=== PATIENT | male | born 1940 | race Caucasian/White ===

== ENCOUNTER → 2021-07-08 10:40 | Outpatient (BNVA) | payer MEDICARE, BC, SELFPAY | PROVIDERS: Visit Provider Nurse Practitioner Gerontology | DX: N20.0 Calculus of kidney; N39.0 Urinary tract infection, site not specified; Q53.10 Unspecified undescended testicle, unilateral; N40.0 Benign prostatic hyperplasia without lower urinary tract symptoms | CPT/HCPCS: 81003; 99205 ==

== ENCOUNTER 2021-07-08 14:10 | Outpatient (REF) | payer MEDICARE, BC, SELFPAY ==
[2021-07-08 18:11] LABS: Bilirubin Negative (Negative); Blood Small (Negative); Clarity Clear (Clear); Glucose Negative (Negative); Ketones Negative (Negative); Leukocyte Esterase Small (Negative); Nitrite Negative (Negative); Specific Gravity 1.025 (1.005-1.025); Urobilinogen 0.2 EU/dL (Up TO 0.2)
[2021-07-08 18:24] LABS: Bacteria Negative HPF (Negative); C & S Indicated? C&S Done As Ordered; Crystals Few Calcium Oxalate HPF (Negative); Epithelial Cells Negative HPF (Negative); Mucus Trace (Negative); WBC >50 HPF (0-5)
== END 2021-07-08 14:11 | disposition home or self-care (01) ==
LOC: LBN 14:10
PROVIDERS: Visit Provider Nurse Practitioner Gerontology
DX: N20.0 Calculus of kidney (principal); N39.0 Urinary tract infection, site not specified
CPT/HCPCS: 81003; 81015; 87086

== ENCOUNTER 2021-07-22 03:19 | Outpatient (CLI) | payer MEDICARE, BC, SELFPAY ==
--- NOTE | 2021-07-22 07:45 | DI.CT_ITS ---
Exam(s) CT ABDOMEN PELVIS WO/W EXAM: CT ABDOMEN PELVIS WO/W CLINICAL HISTORY: hematuria,R31.9. TECHNIQUE: Imaging Protocol: Axial computed tomography images with coronal and sagittal reformatted images were created and reviewed CONTRAST MATERIAL: Intravenous: Omnipaque 100cc Oral: None COMPARISON: No exams were available for comparison FINDINGS: VISUALIZED LUNG BASES: Calcified pleural plaque noted in both lung bases. No pleural effusions.. ABDOMEN: There is no ascites. LIVER: There are no focal hepatic lesions evident. No dilated intrahepatic ducts. GALLBLADDER/BILIARY: Gallbladder is surgically absent. CBD is not dilated. PANCREAS: No evidence of pancreatic mass nor dilatation of the pancreatic duct. SPLEEN: Spleen is not enlarged. No obvious intrasplenic lesions. Splenic and portal veins are paten t. ADRENALS: There are nodules in both adrenal glands. In the right adrenal gland there is a 1.7 by 1.2 cm hypodense nodule. In the left adrenal gland at the level the genu there is a 1.6 by 1.2 cm nodul e. KIDNEYS:There is cysts in both kidneys. The largest cyst in the right kidney measures 2.7 x 2.7 cm. The largest cyst in the left kidney measures 2.6 x 2.7 cm. No solid renal masses seen in either kid sd . However, there are no calculi evident in both kidneys of varying sizes, ranging up to approxim ately 8 millimeter size. No hydronephrosis. No hydroureter. No calculi at the uterovesical junctio ns nor within the urinary bladder. 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 LYMPH NODES:There is no retroperitoneal nor paraaortic adenopathy. ABDOMINAL WALL: There is a fat containing umbilical hernia. No bowel loops therein. There is also a fat containing left inguinal hernia. No bowel loops therein. GI: There is no evidence of bowel obstruction, free air, nor abscess. PELVIS: GI: No evidence of appendicitis.There is sigmoid diverticulosis. There is also evidence of acute div erticulitis in the sigmoid with a small mural abscess measuring 1.4 by 0.7 cm, best seen on the coron al reconstructed images. LYMPH NODES: There is no intrapelvic nor inguinal adenopathy. REPRODUCTIVE: Prostate gland is not enlarged. URINARY BLADDER: No calculi nor obvious masses evident OSSEOUS: No significant osseous lesions. No acute fractures. IMPRESSION: 1. Cysts colonic and sigmoid diverticulosis. There is also evidence of acute diverticulitis in the s igmoid and there is a small 14 x 7 millimeter mural abscess. This is best seen on the coronal recons tructed images. There is no evidence of appendicitis. 2. Multiple simple benign cysts in both kidneys as well as multiple nonobstructive calculi in both ki dneys. No solid renal masses. 3. Bilateral adrenal nodules, possibly incidental adenomas. 4. Abdominal aortic aneurysm with maximum diameter of 3.9 cm. This is superimposed upon atherosclero tic abdominal aorta and iliac arteries. 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 5. The gallbladder surgically absent. The biliary tree is not dilated. RADIATION DOSE DELIVERED: 3,380.2mGy.cm Total DLP DATA REPOSITORY: All CT scans at this facility are submitted to the National Radiology Data Registry (NRDR) Dose Index Registry (DIR) with the [employer] ([employer]). RADIATION OPTIMIZATION: All CT scans at this facility use at least one of these dose optimization te chniques: automated exposure control; mA and/or kV adjustment per patient size (includes targeted exa ms where dose is matched to clinical indication); or iterative reconstruction.
[2021-07-22] MEDS: Breeza Beverage 473 ML BTL PO (09:54)
[2021-07-22 10:41] LABS: CREATININE 0.9 mg/dL (0.70-1.30)
== END 2021-07-22 03:39 ==
PROVIDERS: Visit Provider Nurse Practitioner Gerontology
DX: R31.9 Hematuria, unspecified (principal); N28.1 Cyst of kidney, acquired; I71.4 Abdominal aortic aneurysm, without rupture; I72.3 Aneurysm of iliac artery; K42.9 Umbilical hernia without obstruction or gangrene; K57.20 Diverticulitis of large intestine with perforation and abscess without bleeding; N20.0 Calculus of kidney; D35.01 Benign neoplasm of right adrenal gland; D35.02 Benign neoplasm of left adrenal gland; Z01.812 Encounter for preprocedural laboratory examination
CPT/HCPCS: 74178; 82565

== ENCOUNTER → 2021-08-05 12:31 | Outpatient (BNVA) | payer MEDICARE, BC, SELFPAY | PROVIDERS: PCP Physician Assistant; Visit Provider Nurse Practitioner Gerontology | DX: N20.0 Calculus of kidney (principal); R31.29 Other microscopic hematuria; N40.1 Benign prostatic hyperplasia with lower urinary tract symptoms; N13.8 Other obstructive and reflux uropathy | CPT/HCPCS: 99214 ==

== ENCOUNTER 2021-09-15 09:09 | Outpatient (REF) | payer MEDICARE, BC, SELFPAY | END 2021-09-15 09:10 | disposition home or self-care (01) | LOC: LBN 09:09 | PROVIDERS: PCP Nurse Practitioner; Visit Provider Nurse Practitioner Gerontology | DX: R30.0 Dysuria (principal) | CPT/HCPCS: 87077; 87086; 87186 ==

== ENCOUNTER → 2021-09-15 12:57 | Outpatient (BNVA) | payer MEDICARE, BC, OTHER, SELFPAY | PROVIDERS: PCP Nurse Practitioner; Referring Provider Nurse Practitioner; Visit Provider Nurse Practitioner Gerontology | DX: N40.1 Benign prostatic hyperplasia with lower urinary tract symptoms (principal); N13.8 Other obstructive and reflux uropathy; R31.29 Other microscopic hematuria; N39.0 Urinary tract infection, site not specified | CPT/HCPCS: 81003; 99214 ==

== ENCOUNTER → 2021-09-23 12:47 | Outpatient (BNVA) | payer MEDICARE, BC, SELFPAY | PROVIDERS: PCP Nurse Practitioner; Referring Provider Physician Assistant; Visit Provider Urology | DX: R31.29 Other microscopic hematuria (principal) | CPT/HCPCS: 52000; 81003 ==

== ENCOUNTER 2021-10-16 11:22 | Outpatient (REF) | payer MEDICARE, BC, SELFPAY | END 2021-10-16 11:23 | disposition home or self-care (01) | LOC: LBN 11:22 | PROVIDERS: PCP Nurse Practitioner; Visit Provider Nurse Practitioner Gerontology | DX: R39.89 Other symptoms and signs involving the genitourinary system (principal) | CPT/HCPCS: 87077; 87086; 87186 ==

== ENCOUNTER → 2021-10-16 15:14 | Outpatient (BNVA) | payer MEDICARE, BC, SELFPAY | PROVIDERS: PCP Nurse Practitioner; Referring Provider Nurse Practitioner; Visit Provider Nurse Practitioner Gerontology | DX: N40.1 Benign prostatic hyperplasia with lower urinary tract symptoms (principal); N13.8 Other obstructive and reflux uropathy; N39.0 Urinary tract infection, site not specified | CPT/HCPCS: 51798; 81003; 99213 ==

== ENCOUNTER → 2021-11-25 09:19 | Outpatient (BNVA) | payer MEDICARE, BC, SELFPAY | PROVIDERS: PCP Nurse Practitioner; Referring Provider Nurse Practitioner; Visit Provider Nurse Practitioner Gerontology | DX: N40.1 Benign prostatic hyperplasia with lower urinary tract symptoms (principal); N13.8 Other obstructive and reflux uropathy; N39.0 Urinary tract infection, site not specified | CPT/HCPCS: 51798; 81003; 99214 ==

== ENCOUNTER 2021-11-25 16:34 | Outpatient (REF) | payer MEDICARE, BC, SELFPAY | END 2021-11-25 16:35 | disposition home or self-care (01) | LOC: LBN 16:34 | PROVIDERS: PCP Nurse Practitioner; Visit Provider Nurse Practitioner Gerontology | DX: N39.0 Urinary tract infection, site not specified (principal); R39.89 Other symptoms and signs involving the genitourinary system | CPT/HCPCS: 87077; 87086; 87186 ==

== ENCOUNTER → 2022-02-26 12:44 | Outpatient (BNVA) | payer MEDICARE, BC, SELFPAY | PROVIDERS: PCP Nurse Practitioner; Referring Provider Nurse Practitioner; Visit Provider Nurse Practitioner Gerontology | DX: R31.29 Other microscopic hematuria (principal); N40.1 Benign prostatic hyperplasia with lower urinary tract symptoms; N13.8 Other obstructive and reflux uropathy; N20.0 Calculus of kidney; N39.0 Urinary tract infection, site not specified | CPT/HCPCS: 51798; 81003; 99214 ==

== ENCOUNTER 2022-02-26 15:07 | Outpatient (REF) | payer MEDICARE, BC, SELFPAY | END 2022-02-26 15:08 | disposition home or self-care (01) | LOC: LBN 15:07 | PROVIDERS: PCP Nurse Practitioner; Visit Provider Nurse Practitioner Gerontology | DX: R31.9 Hematuria, unspecified (principal) | CPT/HCPCS: 87077; 87086; 87186 ==